=== PATIENT | female | born 1935 | race Caucasian/White ===

== ENCOUNTER 2019-06-02 19:47 | Inpatient (IN) ==
--- NOTE | 2019-06-02 21:34 | Diag Imaging Result Doc PS360 ---
EXAM: CHEST-PORTABLE HISTORY: h/o CHF TECHNIQUE: Chest single view COMPARISON: 05/05/2019 FINDINGS: The lungs are well expanded. There is scarring in the mid lungs. The heart is not enlarged. The vessels are not distended. There are no infiltrates. No effusion identified. IMPRESSION: No congestive failure. Electronically signed by Arthur Hermosillo 06/02/2019 9:31 PM
[2019-06-02 21:37] LABS: BASO# 0.02 X1000 (0.0-0.2); BASO% 0.2 % (0.0-0.8); EOS# 0.03 X1000 (0.0-0.7); EOS% 0.3 % (0.0-10.0); HEMATOCRIT 34.2 % (37.0-47.0); HEMOGLOBIN 11.4 g/dL (12.0-16.0); IMM GRAN# 0.09 X1000 (0.0-0.04); IMM GRAN% 0.9 % (0.0-0.5); LYMPH# 3.01 X1000 (1.2-3.4); LYMPH% 29.7 % (20.5-51.1); MCH 31.1 PG (27-31); MCHC 33.3 g/dL (33-37); MCV 93.4 FL (81-99); MONO# 0.67 X1000 (0.11-0.59); MONO% 6.6 % (1.7-9.3); MPV 9.4 FL (7.4-10.4); NEUT# 6.31 X1000 (1.4-6.5); NEUT% 62.3 % (42.2-75.2); PLT 410 X1000 (130-400); RBC 3.66 XMIL (4.2-5.4); RDW 12.3 % (11.5-14.5); WBC 10.13 X1000 (4.8-10.8)
--- NOTE | 2019-06-02 21:38 | Diag Imaging Result Doc PS360 ---
EXAM: CT HEAD W/O CONTRAST HISTORY: "shaking" TECHNIQUE: CT head without contrast COMPARISON: 05/05/2019 FINDINGS: No parenchymal hemorrhage. No epidural or subdural hematoma. No subarachnoid hemorrhage. There are chronic microvascular ischemic changes. No mass identified on this noncontrasted exam. No hydrocephalus. Chronic right maxillary sinusitis. IMPRESSION: 1.Chronic ischemic changes 2.Chronic right maxillary sinusitis This exam was performed using automated exposure control, adjustment of mA or kV according to patient size, and/or use of iterative reconstruction technique. Electronically signed by Arthur Hermosillo 06/02/2019 9:36 PM
[2019-06-02 22:02] LABS: POTASSIUM 4.3 mmol/L (3.5-5.1)
[2019-06-02 22:28] LABS: ALB/GLOB RATIO 2.1; ALBUMIN 3.9 g/dL (3.5-5.0); CALCIUM 8.8 mg/dL (8.8-10.2); CREATININE 1.2 mg/dL (0.5-0.9); TOTAL BILIRUBIN 0.34 mg/dL (0.20-1.00); TOTAL PROTEIN 5.8 g/dL (6.3-8.3)
[2019-06-02 22:47] LABS: URINE SOURCE CLEAN CATCH
[2019-06-02 22:49] LABS: BILIRUBIN URINE NEGATIVE (NEGATIVE); BLOOD URINE NEGATIVE (NEGATIVE); COLOR YELLOW; GLUCOSE URINE NEGATIVE (NEGATIVE); KETONE URINE NEGATIVE (NEGATIVE); LEUKOCYTES URINE NEGATIVE (NEGATIVE); NITRITE URINE NEGATIVE (NEGATIVE); PROTEIN URINE NEGATIVE (NEGATIVE); SP GRAVITY URINE 1.016; TURBIDITY URINE CLEAR (CLEAR); UROBILINOGEN URINE NORMAL (NORMAL)
[2019-06-02 22:50] LABS: UR EPITHELIAL CELLS <10 /HPF (<10); URINE BACTERIA NEGATIVE /HPF; URINE RBC <10 /HPF (<10); URINE WBC <10 /HPF (<10)
--- NOTE | 2019-06-03 01:29 | PROVIDER DOCUMENTATION ---
This chart was entered by Miranda Solomon Scribe, acting as scribe for Yanira Glasgow MD. HPI-General Adult - General Chief Complaint: Return/Recheck Stated Complaint: RACING HEART/UNSTEADY/HISTORY OF CONGEST HEART Time Seen by Provider: 06/02/19 20:20 Source: patient Allergies/Adverse Reactions: Patient Allergies Allergy/AdvReac Type Severity Reaction Status Date / Time Penicillins Allergy Mild RASH Verified 06/03/19 00:58 prochlorperazine edisylate * Allergy Mild RASH Verified 06/03/19 00:58 [From Compazine] prochlorperazine maleate * Allergy Mild RASH Verified 06/03/19 00:58 [From Compazine] Home Medications: Home Medication List Medication Instructions Recorded Confirmed Last Taken Type Ranitidine [Zantac] 150 mg PO BID 05/05/19 06/03/19 Unknown History Sulindac 200 mg PO BID 05/05/19 06/03/19 05/04/19 20:00 History Calcium Carbonate [Calcium] 2 tab PO DAILY 05/06/19 06/03/19 05/04/19 09:00 History Cholecalciferol (Vitamin D3) 2,000 unit PO HS 30 Days #30 cap 05/12/19 06/03/19 Unknown Rx [Vitamin D3] Donepezil [Aricept] 10 mg PO QHS 30 Days #30 tab 05/12/19 06/03/19 Unknown Rx Duloxetine [Cymbalta] 60 mg PO DAILY 30 Days #30 cap 05/12/19 06/03/19 Unknown Rx Folic Acid 1 mg PO BID 30 Days #60 tab 05/12/19 06/03/19 Unknown Rx Iron Carbonyl/Ascorbic Acid 1 ea PO HS 30 Days #30 tab 05/12/19 06/03/19 Unknown Rx [Icar-C] Melatonin 5 mg PO QHS 30 Days #30 tab 05/12/19 06/03/19 Unknown Rx Mirtazapine [Remeron] 15 mg PO QHS 30 Days #30 tab 05/12/19 06/03/19 Unknown Rx Olanzapine [Zyprexa] 2.5 mg PO QHS 30 Days #30 tab 05/12/19 06/03/19 Unknown Rx Oxycodone HCl/Acetaminophen 1 ea PO TID PRN PRN #30 tab 06/11/19 07/03/19 Unknown Rx [Oxycodone-Acetaminophen 5-325] Trazodone [Desyrel] 50 mg PO QHS 30 Days #30 tab 05/12/19 06/03/19 Unknown Rx Furosemide [Lasix] 20 mg PO DAILY 3 Days #3 tab 06/01/19 06/03/19 Unknown Rx Levofloxacin [Levaquin] 500 mg PO DAILY #5 tab 06/01/19 06/03/19 Unknown Rx - History of Present Illness -Gen Adult Nature of Presenting Problems: pt is a 83 yr old female presenting with complaint of tremors, difficult walking, weakness and slurred speech, onset this afternoon, 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 pt report she was seen here and dx as CHF and pneumonia 1 day ago sent home with Lasix and Levaquin. pt denies laura chest pain or shortness of breath, no complaints at this time. onset while seated, was unable to stand or ambulate even with walker. Most of the history came from patient daughter in law who was present for this event. She states that her whole body was shaking and she was answering questions but appeared weak afterwards. She states that she thinks that it Location of Pain/Injury: reports: generalized Pain Radiation: reports: no radiation Quality of Pain: reports: none, other (shakey, no pain) Severity: reports: mild Onset/Duration: reports: this afternoon Timing: reports: resolved prior to arrival Context/Activities at Onset: reports: rest Modifying Factors: improves with: rest (resolved with rest) Associated Symptoms: reports: fatigue, weakness, other (tremors). denies: chest pain, fever/chills, shortness of breath Similar Symptoms Previously?: No Recently seen or treated by another doctor?: Yes Review of Systems - Adult - REVIEW OF SYSTEMS - ADULT Constitutional: reports: fatique. denies: fever Eyes: denies: blurred vision, double vision Ears, Nose, Mouth & Throat: reports: no symptoms reported Cardiovascular: denies: chest pain, palpitations, syncope Respiratory: denies: cough, shortness of breath Gastrointestinal: denies: abdominal pain, diarrhea, nausea, vomiting Genitourinary: reports: no symptoms reported Musculoskeletal: reports: muscle weakness. denies: back pain Integumentary: reports: no symptoms reported Neurological: reports: slurred speech, tremors. denies: dizziness/vertigo, headache/migraines Psychiatric: reports: no symptoms reported Endocrine: reports: no symptoms reported Hematologic/Lymphatic: reports: no symptoms reported Allergic/Immunologic: reports: no symptoms reported All Other Systems: Reviewed and Negative Past History - Adult - PAST MEDICAL HISTORY-ADULT Review of Records: reports: Old Records Reviewed, Nursing Assessment Review, Medications Reviewed, Social history reviewed & non-contributory. Major Childhood Illnesses: reports: denies history Cardiovascular: reports: hyperlipidemia Respiratory: reports: denies history Gastrointestinal: reports: denies history Obstetrical/Gynecological: reports: uterine/ovarian cancer (cervical) Genitourinary: reports: chronic UTI's Musculoskeletal: reports: arthritis, osteoporosis Neurological: reports: denies history Endocrine/Immune: reports: denies history Other Conditions: reports: denies history - PRIOR SURGERIES/PROCEDURES Surgical/Procedure History: reports: cholecystectomy, hysterectomy, joint replacement (left hip), back/neck (back) - IMMUNIZATION STATUS Childhood Immunizations: See Nurse Assessment Flu Vaccine: See Nurse Assessment - FAMILY HISTORY Family History: reviewed, not pertinent - SOCIAL HISTORY Smoking: denies Substance Use: denies Living Situation: family Physical Exam-General - PHYSICAL EXAM-ADULT Initial Vital Signs Reviewed: Yes - CONSTITUTIONAL General Appearance: appears well, alert, no apparent distress - EYES Eyes: PERRL/EOMI - HEAD, EARS, NOSE, MOUTH & THROAT HENMT: normocephalic/atraumatic, moist mucous membranes, normal ENT inspection - NECK Neck: non-tender, full range of motion, supple, normal inspection - RESPIRATORY Respiratory: chest non-tender, lungs clear, normal breath sounds, no respiratory distress, no accessory muscle use - CARDIOVASCULAR Cardiovascular: normal peripheral pulses, regular rate, rhythm, no edema - GASTROINTESTINAL (ABDOMEN) Abdominal Exam: normal bowel sounds, non tender, soft - LYMPHATIC Lymphatic: no adenopathy - MUSCULOSKELETAL Back Exam: normal inspection, no CVA tenderness, no vertebral tenderness Extremity: normal range of motion, non-tender, normal gait, normal inspection - SKIN Integumentary: normal color, normal turgor, warm/dry - NEUROLOGIC Neurologic: grossly normal - PSYCHIATRIC Psych/Mental Status: normal mood/affect Progress - PLAN OF CARE/RESULTS Progress/Plan/Lab Results: Vital Signs - 8 hr 06/02/19 19:58 Temperature 98.1 F Pulse Rate 75 Respiratory Rate 20 Blood Pressure 109/65 O2 Sat by Pulse Oximetry 94 L Laboratory Results - last 24 hr 06/02/19 06/02/19 20:31 20:31 WBC 10.13 RBC 3.66 L Hgb 11.4 L Hct 34.2 L MCV 93.4 MCH 31.1 H MCHC 33.3 RDW Std Deviation 12.3 Plt Count 410 H MPV 9.4 Immature Gran % (Auto) 0.9 H Neut % (Auto) 62.3 Lymph % (Auto) 29.7 Taylor % (Auto) 6.6 Eos % (Auto) 0.3 Baso % (Auto) 0.2 Immature Gran # (Auto) 0.09 H Neut # (Auto) 6.31 Lymph # (Auto) 3.01 Taylor # (Auto) 0.67 H Eos # (Auto) 0.03 Baso # (Auto) 0.02 Troponin T < 0.010 Orders Category Date Time Status Ambulate Patient-Not Phys Thx ORDERED Care 06/02/19 21:18 Active ED: Orthostatic Vital Signs (E DIRECTED Care 06/02/19 21:18 Active Nursing- Obtain EKG ONCE Care 06/02/19 21:20 Active CHEST-PORTABLE [RAD] Stat Exams 06/02/19 21:[address] HEAD W/O CONTRAST [CT] Stat Exams 06/02/19 21:18 Completed CBC WITH ELECTRONIC DIFF [HEME] Stat Lab 06/02/19 20:31 Completed CK TOTAL [CHEM] Stat Lab 06/02/19 20:31 Received COMPREHENSIVE METABOLIC PANEL [CHEM] Stat Lab 06/02/19 20:31 Received PRO B-NATRIURETIC PEPTIDE Stat Lab 06/02/19 20:31 Received TROPONIN T Stat Lab 06/02/19 20:31 Completed URINALYSIS W/POSS RFLX CULT [URINALYSIS] Stat Lab 06/02/19 21:19 Uncollected Patient got up to ambulate and desaturated to the 80s on room air. DOes not take home O2. Very unsteady on her feet as well. Spoke to family about admission and they agree. SPoke to Dr Zhang who accepted patient for admission. Further orders to be placed by their team. Result Diagrams: 06/03/19 05:25 06/03/19 05:25 - EKG 1 Time of EKG reading by physician:: 20:18 EKG Read and Signed by:: Yanira Glasgow EKG Interpretation (*Must complete 3 of following elements*): Normal Rate: 67 Rhythm: nsr ST Wave: non-specific ST changes - XRAY 1 XRAY Study: Chest Impression: Normal (Signed EXAM: CHEST-PORTABLE HISTORY: h/o CHF TECHNIQUE: Chest single view COMPARISON: 05/05/2019 FINDINGS: The lungs are well expanded. There is scarring in the mid lungs. The heart is not enlarged. The vessels are not distended. There are no infiltrates. No effusion identified. IMPRESSION: No congestive failure. Electronically signed by Arthur Hermosillo 06/02/2019 9:31 PM 06/02/192130 Interpreting Physician: Arthur Hermosillo MD Dictated Date/Time: 06/02/192130 cc: Yanira Glasgow MD; Arina Campo MD) Comparison with other Films: no changes (05/05/19) - CT/MRI 1 CT Study: Head Impression: Abnormal ( EXAM: CT HEAD W/O CONTRAST HISTORY: "shaking" TECHNIQUE: CT head without contrast COMPARISON: 05/05/2019 FINDINGS: No parenchymal hemorrhage. No epidural or subdural hematoma. No subarachnoid hemorrhage. There are chronic microvascular ischemic changes. No mass identified on this noncontrasted exam. No hydrocephalus. Chronic right maxillary sinusitis. IMPRESSION: 1.Chronic ischemic changes 2.Chronic right maxillary sinusitis This exam was performed using automated exposure control, adjustment of mA or kV according to patient size, and/or use of iterative reconstruction technique. Electronically signed by Arthur Hermosillo 06/02/2019 9:36 PM 06/02/192135 Interpreting Physician: Arthur Hermosillo MD Dictated Date/Time: 06/02/192134 cc: Yanira Glasgow MD; Arina Campo MD) Comparison with other Films: no changes (05/05/19) Departure - Departure Date of Disposition Decision: 06/03/19 Time of Disposition Decision: 00:15 DIAGNOSIS: Unable to ambulate, Hypoxia Disposition: ADMITTED INPATIENT 09 Certified Medical Emergency: Emergent Condition: Stable - Critical Care Note This patient required my direct & personal management of CC.: No Attestation - Physician/ DAVIDSON Attestation Patient care was provided by Advanced Practice Provider:: No The physician spent face to face time with patient:: Yes Advanced Practice Provider documentation review:: Supervising physician onsite and consulted in the evaluation and care of this patient. The physician did have a face to face encounter with the patient. This chart was documented by the indicated scribe, (Miranda Solomon, Aleah) and accurately reflects the services I performed and decisions made by me, Yanira Glasgow MD, as attested by the provider's signature.
[2019-06-03] MEDS ORDERED: VOLTAREN 1% GEL TOP PRN (04:29)
[2019-06-03 05:32] LABS: BASO# 0.03 X1000 (0.0-0.2); BASO% 0.3 % (0.0-0.8); EOS# 0.12 X1000 (0.0-0.7); EOS% 1.2 % (0.0-10.0); HEMATOCRIT 34.5 % (37.0-47.0); HEMOGLOBIN 11.3 g/dL (12.0-16.0); LYMPH# 4.51 X1000 (1.2-3.4); LYMPH% 45.3 % (20.5-51.1); MCH 30.7 PG (27-31); MCHC 32.8 g/dL (33-37); MCV 93.8 FL (81-99); MONO# 0.79 X1000 (0.11-0.59); MONO% 7.9 % (1.7-9.3); MPV 8.8 FL (7.4-10.4); NEUT# 4.41 X1000 (1.4-6.5); NEUT% 44.3 % (42.2-75.2); PLT 373 X1000 (130-400); RBC 3.68 XMIL (4.2-5.4); RDW 12.5 % (11.5-14.5); WBC 9.96 X1000 (4.8-10.8)
[2019-06-03] MEDS ORDERED: ZOFRAN IV PRN (06:14)
[2019-06-03] MEDS ORDERED: TYLENOL PO PRN (06:14)
[2019-06-03 06:18] LABS: CREATININE 1.1 mg/dL (0.5-0.9); MAGNESIUM 1.8 mg/dL (1.5-2.7); POTASSIUM 3.6 mmol/L (3.5-5.1)
[2019-06-03] MEDS: PERCOCET-5 PO PRN ×2 (06:58→20:01)
[2019-06-03] MEDS: ROCEPHIN 1 GM in NS 50 ML IV SCH (07:00)
--- NOTE | 2019-06-03 08:06 | Diag Imaging Result Doc PS360 ---
EXAM: XRAY PELVIS W/HIP 2-3VW LT INDICATION: Left hip,left lateral thigh pain TECHNIQUE: 3 views COMPARISON: 01/03/2019 FINDINGS: There has been a prior left hip arthroplasty. There is a helical nail and intramedullary carley on the right. The trochanteric fracture on the left seen on the previous study appears to have healed. There is bony callus in this region. There are healed fractures at the inferior and superior pubic rami on the right, stable. There is no definite acute fracture, dislocation, or significant intrinsic osseous lesion, otherwise. The surrounding soft tissues are essentially unremarkable. IMPRESSION: Chronic changes as described. No definite acute osseous abnormality. Electronically signed by Zaid Miller 06/03/2019 7:26 AM
--- NOTE | 2019-06-03 08:06 | EKG Report ---
Test Performed on : 06/02/2019 8:14:42 PM Test Reason : ED. NO EKG ORDER FOR MUSE Blood Pressure : / mmHG Vent. Rate : 067 BPM Atrial Rate : 067 BPM P-R Int : 172 ms QRS Dur : 068 ms QT Int : 448 ms P-R-T Axes : 054 011 097 degrees QTc Int : 473 ms Normal sinus rhythm. T wave abnormality, consider lateral ischemia Abnormal ECG When compared with ECG of 01-JUN-2019 11:30, (Unconfirmed) QT has lengthened Unconfirmed Result
[2019-06-03] MEDS: FOLIC ACID PO SCH ×2 (08:29→20:01)
[2019-06-03] MEDS: CALTRATE 600 PO SCH (08:29)
[2019-06-03] MEDS: ZITHROMAX 500 MG/NS 500 MG/250 ML IVPB IV SCH (08:29)
[2019-06-03] MEDS: ZANTAC PO SCH ×2 (08:29→20:01)
[2019-06-03] MEDS: DUONEB (A & A) INH PRN ×2 (09:51→19:29)
--- NOTE | 2019-06-03 17:42 | PROGRESS NOTE ---
DATE: 06/03/2019 SUBJECTIVE: Apparently was admitted because there was some confusion. She said she just did not feel right. Complained of pain in her left leg. Did not feel like her left leg was supporting her. Hurt in the left side of the hip, also in the left lateral knee. Her daughter states this is very unlike her. She is always going at a pretty rapid pace. She complained of apparently a headache in the back of her head. The daughter said she had a glazed look in her eye, so brought her here to the emergency room. Today she is sitting up in the chair and she seems pleasant and no complaints, except her left leg. She has some pain in the left lateral hip and left lateral knee. OBJECTIVE: Vital signs: Temp 98.3 degrees, pulse 76, respirations 18, blood pressure 101/58. HEENT: Pupils are equal and round. Lungs: Clear in all lung antoine. Cardiovascular: Regular rhythm and rate without murmur or S3. Abdomen: Soft. Skin: Warm and dry. LABORATORY DATA: White count 9,960, hematocrit was 34, hemoglobin 11.3, MCV was 93. Electrolytes: Sodium 137, potassium 3.6, chloride 100, BUN 27, creatinine 1.1, calcium 8.0. Troponin was less than 0.01. CK was 124 and 113. Chest x-ray on admission: No congestive heart failure. No sign of infiltrates. Vessels nondistended. Head CT without contrast: Chronic ischemic changes. Chronic right maxillary sinusitis. Hip and pelvis x-ray: Chronic changes described. No definite acute osseous abnormality. I do not see any electrolyte abnormalities. Magnesium was 1.8, sodium 137, potassium 3.6, chloride 100, BUN 27, creatinine 1.1. ASSESSMENT AND PLAN: Left leg pain, which I suspect is musculoskeletal. She may have left trochanteric bursitis. I thought I would get physical therapy to help and see how we do walking around. X-rays of the left hip and left lateral thigh, no acute bony injury, chronic changes. She has had prior left hip arthroplasty, helical nail, and intramedullary carley on the right. Trochanteric fracture on the left, appears to have healed. There were healed fractures of the inferior and superior pubic rami on the right. No definite acute fracture or dislocation or significant intrinsic osseous lesion identified. REVIEW OF MEDICATIONS: At home she is on calcium carbonate 2 tablets a day, vitamin D3 2000 units p.o. at bedtime, Aricept 10 mg daily, Cymbalta 60 mg a day, folic acid 1 mg b.i.d., Lasix 20 mg a day which she took for 3 days apparently, Icar C 1 a day, Levaquin she was treated with 500 mg a day, melatonin 5 mg at bedtime, Remeron 15 mg at bedtime, Zyprexa 2.5 mg at bedtime, and she was taking some oxycodone p.r.n. pain, Zantac 150 mg b.i.d., sulindac 200 mg b.i.d., and Desyrel 50 mg a day. We will continue the melatonin. We stopped some of the other medications. She was getting oxycodone 5 mg q.8 hours p.r.n. I guess will continue that for pain. I do not see any evidence of infection. Physical therapy will help to evaluate and see how we do walking around tomorrow. cc: Todd Gunter MD
--- NOTE | 2019-06-03 17:55 | ECHO REPORT ---
ORDER DATE: 06/03/2019 INDICATION: An 83-year-old female with dizziness, possible stroke. M-MODE MEASUREMENTS: Left ventricle end diastole: 4.0. Left ventricle end systole: 2.5. Posterior wall: 1.0. Interventricular septum: 1.0 Left atrium: 3/7. Aortic diameter: 3.4. SUMMARY OF 2-DIMENSIONAL IMAGIN. Left ventricular function is normal with ejection fraction of 65% to 70%. No wall motion abnormality is noted. 2. The aortic valve shows a minimal degree of sclerosis. Color flow mapping indicates trace regurgitation. 3. The mitral valve looks grossly normal. Color flow mapping indicates a mild degree of regurgitation. 4. Pulsed wave Doppler of mitral inflow shows very minimal reversal of the E/A ratio. The ratio is 0.8. 5. Tissue Doppler of septal and lateral mitral annulus averages 6.5 cm. 6. Pulmonary venous flow is normal. 7. There is no diastolic dysfunction. 8. The pulmonic valve shows a mild to moderate degree of regurgitation. 9. The tricuspid valve shows a mild degree of regurgitation. Pulmonary pressure is estimated at 36 mmHg. 10.There is no pericardial effusion, no masses, and no thrombus. 11.There is mild calcification of the mitral annulus. Clinical correlation recommended. cc: Madi Ryan MD
[2019-06-03] MEDS ORDERED: ICAR-C PO SCH (21:00)
[2019-06-03] MEDS ORDERED: VITAMIN D PO SCH (21:00)
[2019-06-03] MEDS ORDERED: ARICEPT PO SCH (21:00)
[2019-06-03] MEDS ORDERED: MELATONIN PO SCH (21:00)
[2019-06-03 23:49] LABS: URINE SOURCE CLEAN CATCH
[2019-06-03 23:57] LABS: BILIRUBIN URINE NEGATIVE (NEGATIVE); BLOOD URINE NEGATIVE (NEGATIVE); COLOR YELLOW; GLUCOSE URINE NEGATIVE (NEGATIVE); KETONE URINE NEGATIVE (NEGATIVE); LEUKOCYTES URINE NEGATIVE (NEGATIVE); NITRITE URINE NEGATIVE (NEGATIVE); PH URINE 6.5; PROTEIN URINE NEGATIVE (NEGATIVE); SP GRAVITY URINE 1.009; TURBIDITY URINE CLEAR (CLEAR); UROBILINOGEN URINE NORMAL (NORMAL)
[2019-06-03 23:59] LABS: UR EPITHELIAL CELLS <10 /HPF (<10); URINE BACTERIA NEGATIVE /HPF; URINE RBC <10 /HPF (<10); URINE WBC <10 /HPF (<10)
[2019-06-04] MEDS: PERCOCET-5 PO PRN (06:23)
[2019-06-04] MEDS: ROCEPHIN 1 GM in NS 50 ML IV SCH (06:24)
[2019-06-04 07:39] VITALS: BP 115/61
[2019-06-04] MEDS: ZITHROMAX 500 MG/NS 500 MG/250 ML IVPB IV SCH (08:24)
[2019-06-04] MEDS: CALTRATE 600 PO SCH (08:24)
[2019-06-04] MEDS: FOLIC ACID PO SCH (08:24)
[2019-06-04] MEDS: ZANTAC PO SCH (08:24)
--- NOTE | 2019-06-04 09:00 | Carotid Study ---
DATE: 06/03/2019 PROCEDURE: Bilateral duplex and color flow imaging of the carotid arteries performed using a GE Vivid E9 Ultrasound System with a 9L-D transducer. REFERRING PHYSICIAN: Dr. Zhang. Room number is 308, 83-year-old female. INTERPRETING PHYSICIAN: Melissa Ferraro MD. TECH: Beth Angel RVT. INDICATIONS: Dizziness. OBSERVED DATA RIGHT LEFT Brachial Blood Pressure Carotid Pulse Bruits: Carotid/Sub DIAGRAM OF ULTRASOUND IMAGING R L RIGHT INT EXT INT EXT LEFT Everardo (cm/s) Everardo (cm/s) Subclavian 131/0 Subclavian 159/0 CCA Proximal 77/10 CCA Proximal 105/19 CCA Distal 100/16 CCA Distal 91/19 Bulb 60/9 Bulb 87/12 ICA Proximal 57/15 ICA Proximal 54/9 ICA Mid 64/18 ICA Mid 63/19 ICA Distal 77/21 ICA Distal 56/13 ECA 71/2 ECA 103/7 Vertebral 50/7 Forward flow Vertebral 58/9 Forward flow ICA/CCA Ratio 0.78 ICA/CCA Ratio 0.60 % Stenosis 0-39% % Stenosis 0-39% PHYSICIAN INTERPRETATION: Mild atherosclerotic disease of the distal common and internal carotid arteries bilaterally without evidence of a hemodynamically significant lesion in either carotid system. cc: Melissa Ferraro MD
--- NOTE | 2019-06-04 09:03 | HISTORY AND PHYSICAL ---
PRIMARY CARE PROVIDER: Dr. Arina Campo CHIEF COMPLAINT: Confusion, tremor, slurred speech, weakness, low oxygen saturation and left hip pain. HISTORY OF PRESENT ILLNESS: Ms. Lal is an 83-year-old female who actually was initially seen in the ER 2 days ago. She did present with some similar complaints that she has today. She complained of generalized pain, shortness of breath, left ankle swelling, spinning, dizziness as well as weakness and fatigue. During this ER visit, she did have a CT angiogram of the pulmonary arteries performed which did patchy airspace infiltrates with a basilar predominance and worse on the right, many with a tree-in-bud configuration. The radiologist noted this probably represents an atypical infection process and to consider Mycobacterium avium intracellular. There was no evidence of pulmonary emboli. Her proBNP during that ER visit was slightly elevated at 599. She was complaining of leg swelling with ankle swelling. Though looking back, this is something that was mentioned in a previous history and physical and is something that is chronic. This is not of new onset. They did give her prescriptions for Levaquin and Lasix. The patient was discharged home. Her daughter states that the next day her home health nurse did come out and check on her. The home health nurse did notice that her oxygen saturation was running low being in the low 90s. She also reported that she was complaining of a tremor just about at lunch time. She states that shortly after her tremors started that she had a period where she was almost like she was disoriented and confused, and that she was at times sitting there with a blank stare on her face. Her qrsrbldn-hf-efq also reported that she had some slurred speech at this time. She was having weakness as well. The patient also reports that she has been having left hip pain. The patient does have osteoarthritis. She has had fractures of the bilateral hips and surgery of bilateral hips. In January 2019 the patient did have a fall and did sustain a fracture of the left proximal femur. The patient was followed up by Dr. Streeter for this. She states that for the past couple of weeks she has been having a lot of left hip and left lateral thigh pain and is now reporting some numbness in her left foot which she states started yesterday afternoon when all of her other symptoms started. The patient denies any headache. She denies any visual disturbances at this time. She is alert and oriented to person, place, time and situation. Her vipotomc-za-ajd at bedside was helpful in assisting us with history of present illness and past medical history. She denies any shortness of breath at this time though it was noted by the home health nurse that her oxygen saturations had been running low in the low 90s. She denied any abdominal pain, nausea, vomiting or diarrhea. She denied any dysuria. She did report the extremity symptoms as mentioned above. White blood cell count was within normal limits. Chemistries were pretty unremarkable except for she had a slightly elevated creatinine of 1.2 with a GFR of 43. A chest x-ray done in the ER this evening did not show any congestive heart failure or infiltrates, though as previously mentioned, the patient did have a CT angiogram of the pulmonary arteries performed on June 01 which did show patchy airspace infiltrates. She denied any cough. She denied any fever, body aches, or chills. At this time the patient is being admitted for further treatment and evaluation. REVIEW OF SYSTEMS: A 14-point review of systems was conducted with the patient. All were negative except for pertinent positives mentioned in above HPI. PAST MEDICAL HISTORY: 1. Dementia. 2. Osteoarthritis. 3. Anemia. 4. Gastroesophageal reflux disease. 5. Inflammatory bowel disease. 6. History of cervical cancer in 1971, status post radiation therapy. 7. Chronic pain. 8. Major depressive disorder. PAST SURGICAL HISTORY: 1. Hysterectomy. 2. Bladder tack. 3. Urethral sling. 4. Lumbar surgery. 5. Left blepharoplasty. 6. Surgery to bilateral hips. 7. Right shoulder repair. SOCIAL HISTORY: The patient has no known history of tobacco, alcohol or illicit drug use. Her wgfcpicy-ax-cnu was at bedside. The fhmvqxvz-cy-jqs does live with the mother and she does help take care here. FAMILY HISTORY: Positive for her father having a history of heart disease. ALLERGIES: Patient has allergies to penicillin and Compazine, although she does not know what type of a reaction she has to penicillin. HOME MEDICATIONS: 1. Calcium carbonate 600 mg tablets, 2 tablet p.o. daily. 2. Vitamin D3 2000 units p.o. at bedtime. 3. Aricept 10 mg p.o. at bedtime. 4. Cymbalta 60 mg p.o. daily. 5. Folic acid 1 mg p.o. b.i.d. 6. Icar C 1 tablet p.o. at bedtime. 7. Levaquin 500 mg p.o. daily. 8. Melatonin 5 mg p.o. at bedtime. 9. Remeron 15 mg p.o. at bedtime. 10.Zyprexa 2.5 mg p.o. at bedtime. 11.Percocet 5 mg p.o. t.i.d. p.r.n. for pain. 12.Zantac 150 mg p.o. b.i.d. 13.Sulindac 20 mg p.o. b.i.d. 14.Desyrel 50 mg p.o. at bedtime. DIAGNOSTIC STUDIES: White blood cell count is 10,130, hemoglobin 11.4, hematocrit 34.2, platelet count is 410,000. Sodium 134, potassium 4.3, chloride 95, serum bicarbonate 25, BUN 33, creatinine 1.2, GFR 43, glucose 96, calcium 8.8. Liver function tests within normal limits. First set and repeat set of cardiac enzymes including CK and troponin are negative. Urinalysis was obtained via clean catch and was negative for protein, glucose, ketones, blood, nitrites, leukocytes, white blood cells, or bacteria. EKG showed normal sinus rhythm at a rate of 67 with a QTc of 473. Chest x-ray showed no congestive heart failure, no infiltrates or effusion. CT of the head without contrast showed some chronic ischemic changes and chronic right maxillary sinusitis. There was no evidence of acute intracranial abnormalities. A CT angiogram of pulmonary arteries was performed in the ER on 06/01/2019 which did show patchy airspace infiltrates with a basilar predominance and worse on the right, many with a tree-in-bud configuration. This was noted by the radiologist to probably represent an atypical infectious process. Would consider Mycobacterium avium intracellulare with no evidence of pulmonary embolus. PHYSICAL EXAMINATION: VITAL SIGNS: Temperature 97.9, heart rate 66, respirations 19, blood pressure is 114/60, oxygen saturation is 95% on nasal cannula at 2 L. GENERAL: Ms. Lal is an 83-year-old, elderly, frail-appearing female who is resting in the ER stretcher. She is in no acute distress. She was awake, alert, and able to answer questions appropriately. HEENT: Head is atraumatic, normocephalic. Pupils are equal, round, and reactive to light and are 3 mm bilaterally and brisk. Oral mucosa is moist. Oropharynx is clear. NECK: Supple. Trachea midline. CARDIOVASCULAR: Patient had S1, S2 present. No murmurs, gallops, rubs appreciated with regular rate and rhythm. PULMONARY: Patient has symmetrical chest expansion bilaterally. Lung sounds are clear to auscultation in bilateral upper antoine. ABDOMEN: Soft, nontender, nondistended. Bowel sounds are present in all 4 quadrants and are normoactive. EXTREMITIES: No cyanosis or edema noted. Pulse, motor and sensory are intact in all extremities. The patient does appear to have some generalized weakness. Her hand grasps were bilaterally. She was complaining of some left hip and left lateral thigh pain. There was no obvious abnormality noted. She did report tenderness upon palpation of these areas. She also may have some very slight swelling noted to here left ankle, but this was not significant. She was also reporting some numbness in the same left ankle as well, though radial and pedal pulses were 2+ bilaterally. INTEGUMENTARY: The patient's skin is pink, warm, and dry. NEUROLOGICAL: Patient is alert and oriented at this time to person, place, time, and situation. She does have some underlying dementia. Her pupils are equal, round and reactive to light at 3 mm bilaterally and brisk. Muscle strength and hand grasps were equal bilaterally. On my examination, there was no tremor noted at this time. Her speech was clear and understandable. She can move all extremities. Though the patient has [*] she is reporting some numbness in her left ankle area. ASSESSMENT AND PLAN: 1. Community-acquired pneumonia. For this we will place her with antibiotic coverage of Rocephin and azithromycin. Blood culture and sputum culture have been ordered. Will continue very aggressive pulmonary toilet with incentive spirometry and frequent turns, coughing and deep breathing as well as p.r.n. DuoNeb treatment. We will continue to follow this closely and monitor her response to antibiotics to see if her symptoms improve. Also, we will continue to consider and rule out atypical infectious process for which the radiologist did note to consider a Mycobacterium avium intracellulare infection. 2. Encephalopathy. This could be multifactorial. The patient does take several medicines that can have neurological side effects. She was also given a new prescription for Levaquin which can have some induced side effects as well, though we will continue to rule out the possibility of maybe a transient ischemic attack or a stroke. The patient at this time is alert and oriented to person, place, time and situation. Her speech is clear and understandable. Her tremor is gone, but she does still have some weakness, although this is equal bilateral. This is generalized. Her CT head in the emergency room showed some chronic ischemic changes and chronic left maxillary sinusitis and negative for intracranial abnormality. We will continue with an echocardiogram as well as a carotid ultrasound. We will continue to rule out other causes. 3. Weakness. This may be due to some of the medicines and complications as mentioned above in #2. We will continue to evaluate this with above-mentioned tests. We will also do a series of cardiac enzymes to rule out any involvement there. She was complaining of a hip pain, however, on x-ray there does not appear to be any new acute fracture from what I can tell. We are awaiting official radiology over-read. Once this is done, if the x-ray is negative, we will go ahead and order a physical therapy evaluation. 4. Acute pain. As previous mentioned, we have performed an x-ray. We are awaiting official radiology over-read. If this is negative, we will continue with physical therapy evaluation, though we have ordered some medications for pain control which will include Voltaren topical gel and p.r.n. Percocet 1 p.o. q.8 hours p.r.n. 5. Deep vein thrombosis prophylaxis. Will provide sequential compression devices. 6. The patient will be placed on the medical floor for telemetry, labs, vital signs q.4 hours. Will get a CBC and BMP in the morning. We are awaiting results of other diagnostic studies a previously mentioned. Further orders and recommendation pending hospital course, diagnostic studies, and physician evaluation. Dictated by SUPRIYA Sims for Mike Zhang MD cc: Mike Zhang MD
[2019-06-04] MEDS: DUONEB (A & A) INH PRN (09:43)
--- NOTE | 2019-06-04 10:54 | DISCHARGE SUMMARY ---
ADMISSION DATE: 06/03/2019 DISCHARGE DATE: 06/04/2019 HOSPITAL COURSE: She came in with confusion, tremor, complaints if slurred speech, weakness, low oxygen saturation and left hip pain. Ms. Lal is an 83-year-old female, actually was seen in the ER a couple days ago, presented with some similar complaints she had today. Complaining of generalized pain, shortness of breath, left ankle swelling, spinning, dizziness, as well as weakness and fatigue. In the emergency room had a CT angiogram of the pulmonary arteries performed, which did have patchy airspace infiltrates, bibasilar predominance worse on the right, many with a tree-in-bud configuration. The radiologist noted patient could represent an atypical infection and consider Mycobacterium avium intracellular. There is no evidence of pulmonary emboli. Her proBNP during the ER visit was slightly elevated at 599. Complaining of left leg swelling and ankle swelling. Looking back, this is something she mentioned in previous history and is probably chronic. They did give her prescriptions for Levaquin and Lasix and discharged her home. Daughter states the next day at home, health nurse did come out and check on her. Home health noticed that her oxygen saturation running being low in the low 90s, reported she was complaining of tremor just about lunch time. Shortly after tremor was noticed, she had a period where she is almost disoriented, confused, and that she was at times sitting there with a blank stare on her face. Fuifpqgw-tx-guk reported that she had some slurred speech at the time, having some weakness and rigors and left hip pain. She had history of fractured bilateral hips and pelvic fractures. Surgery both hips. In January 2019 patient did have a fall and sustained fracture left proximal femur. The patient followed by Dr. Streeter. She had been having a lot of hip and left lateral thigh pain, numbness in her left foot, so was admitted to the hospital. PAST MEDICAL HISTORY: 1. Dementia. 2. Osteoarthritis. 3. Anemia. 4. Gastroesophageal reflux disease. 5. Inflammatory bowel disease 6. Left blepharoplasty. 7. Surgery of bilateral hips. 8. Right shoulder repair. ADMISSION DIAGNOSES: 1. Community-acquired pneumonia. Followup x-ray really did not reveal anything. There is question on whether she could have atypical pneumonia. Really did not give symptoms to support that. 2. Encephalopathy. She has underlying dementia. She seemed to be at baseline. Family felt like she was at baseline, and I saw no evidence of presyncope. 3. Weakness. She seemed to be moving around and walking. She complained of some left hip pain, left lower leg pain. This seemed to resolve. On review of lab, I really did not see any evidence of significant infection and certainly not of classical bacterial infection. White count was not elevated. Electrolytes look good. Renal function looked good. Troponin and CK look good as well. So, as far as discharging home, I am going to let her go home on the following medications: DISCHARGE MEDICATIONS: 1. She can take Tylenol as needed. 2. She is on azithromycin; she got 500 mg IV q. 24 hours. 3. I am going to put her on a Z-Wojciech, let her go home with that. 4. Caltrate 600. She takes 1200 mg a day. 5. We will stop her ceftriaxone. 6. She is on vitamin D 2000 units p.o. at bedtime. 7. Aricept 10 mg at bedtime. 8. Folic acid 1 mg b.i.d. 9. Icar C one at bedtime. 10. Melatonin 5 mg at bedtime. 11. Zantac 150 mg b.i.d. 12. I think we will hold the Sulindac, and we did not give her any Desyrel while she was here. 13. I think she ought to stay on her Zyprexa, which is 2.5 mg at bedtime. 14. We will continue her Aricept 10 mg at bedtime. cc: Todd Gunter MD
== END 2019-06-04 12:02 | disposition home health service (06) | DRG 193 ==
LOC: ED 19:47 → 3N 06-03 04:47
PROVIDERS: ATTEND Emergency Medicine
CPT/HCPCS: 70450; 71010; 71045; 71275; 73502; 80048; 80053; 81001; 82550; 83735; 83880; 84484; 85025; 85379; 87040; 93005; 93306; 93880; 94640; 94761; 94799; 99284; 99285; A9270; J0456; J0696; J1940; Q9967